=== PATIENT | male | born 1950 | race Caucasian/White ===

== ENCOUNTER 2025-02-20 14:23 | Emergency (ER) | payer BC ==
[~2025-02-20] VITALS: Ht 172.7 cm; Wt 88.0 kg
--- NOTE | 2025-02-20 14:36 | ELECTROCARDIOGRAPH REPORT ---
[facility] Test Date: 2025-02-20 Test Time: 14:32:15 Pat Name: VIKY PUGH Department: EMERGENCY ROOM Room: Gender: M [employer]: : 1950 Requested By: EVIE OCHOA Order Number: [id number] Reading MD: Measurements Intervals [place] Rate: 45 P: 52 AL: 266 QRS: 34 QRSD: 107 T: 183 QT: 525 QTc: 455 Interpretive Statements Sinus bradycardia Prolonged AL interval Borderline repolarization abnormality Please click the below link to view image of tracing.
--- NOTE | 2025-02-20 14:59 | RADIOLOGY REPORT ---
DI CHEST,SINGLE VIEW, HISTORY: CP COMPARISON: None None TECHNICAL DATA: 1 view of the chest was obtained. FINDINGS: Lines and tubes: None Cardiomediastinal silhouette: Enlarged Pulmonary vasculature: normal Lung expansion: normal Lung airspace: normal Lung interstitium: normal Pleura: normal Pneumothorax: no Bones: Unremarkable Other: no IMPRESSION: No acute intrathoracic abnormality. Cardiomegaly
[2025-02-20 15:01] LABS: BASOPHILS % (AUTO) 0.4 % (0-1); EOSINOPHILS # (AUTO) 0.1 X10'3 (0-0.9); EOSINOPHILS % (AUTO) 0.7 % (0-6); HEMOGLOBIN 15.4 g/dl (14.0-17.9); LYMPHOCYTES # (AUTO) 1.3 X10'3 (1.1-4.8); LYMPHOCYTES % (AUTO) 16.9 % (21-51); MEAN CORPUSCULAR HEMOGLOBIN 29.7 PG (27.0-31.0); MEAN CORPUSCULAR HGB CONC 34.2 g/dL (33.0-36.5); MEAN CORPUSCULAR VOLUME 86.8 FL (78-98); MEAN PLATELET VOLUME 7.4 FL (7.4-10.4); MONOCYTES # (AUTO) 0.6 X10'3 (0-0.9); MONOCYTES % (AUTO) 7.4 % (2-12); NEUTROPHILS # (AUTO) 5.7 X10'3 (1.8-7.7); NEUTROPHILS % (AUTO) 74.6 % (42-75); PLATELET COUNT 163 X10'3 (140-440); RED BLOOD COUNT 5.18 X10'6 (4.70-6.10); RED CELL DISTRIBUTION WIDTH 13.5 % (11.5-14.5); WHITE BLOOD COUNT 7.6 X10'3 (4.5-11.0)
[2025-02-20 15:15] LABS: ALANINE AMINOTRANSFERASE 43 U/L (12-78); ALBUMIN 3.9 G/DL (3.4-5.0); ALBUMIN/GLOBULIN RATIO 1.1 (1.1-1.5); ALKALINE PHOSPHATASE 70 IU/L (46-116); ANION GAP 7 (8-16); ASPARTATE AMINO TRANSFERASE 24 U/L (10-37); BLOOD UREA NITROGEN 36 MG/DL (7-18); CALCIUM 8.2 MG/DL (8.5-10.1); CHLORIDE 107 MMOL/L (99-107); CREATININE 1.16 MG/DL (0.60-1.10); GLUCOSE 199 MG/DL (70-104); POTASSIUM 4.4 MMOL/L (3.5-5.1); SODIUM 141 MMOL/L (135-145); TOTAL CARBON DIOXIDE 26.6 MMOL/L (24-32); TOTAL PROTEIN 7.3 G/DL (6.4-8.2); eCRCL 55 ML/MIN; eGFR 62 ML/MIN
[2025-02-20 15:22] LABS: PRO BRAIN NATRIURETIC PEPTIDE 545 PG/ML (0-125)
[2025-02-20 15:56] VITALS: TEMP 98.4
[2025-02-20 16:53] LABS: BILIRUBIN,URINE NEGATIVE (Neg); CLARITY,URINE CLEAR (Clear); COLOR,URINE YELLOW (Yellow); GLUCOSE, URINE >=1000 mg/dl (Neg); KETONES,URINE NEGATIVE (Neg); LEUKOCYTE ESTERASE ,URINE NEGATIVE (Neg); NITRITES, URINE NEGATIVE (Neg); OCCULT BLOOD,URINE TRACE-INTACT (Neg); PROTEIN,URINE 30 mg/dl (Neg); UROBILINOGEN,URINE 0.2 E.U/dL (0.2-1.0)
[2025-02-20 16:56] LABS: UA COLLECTION TYPE CLN CATCH MIDSTREAM
[2025-02-20 17:06] VITALS: BP 144/84; PULSE 47; RESP 18; O2SAT 99
[2025-02-20 17:11] LABS: BACTERIA,URINE NONE SEEN /HPF (Neg); HYALINE CASTS 0-3 /LPF (NEGATIVE); MUCUS STRANDS FEW /LPF (Neg); RBC,URINE 0-2 /HPF (0-2); SQUAMOUS EPITHELIAL CELL,UR NONE SEEN /LPF (FEW); WBC,URINE 0-4 /HPF (0-4)
--- NOTE | 2025-02-24 17:06 | Physician Documentation ---
History of Present Illness ~ Chief Complaint: Syncope Stated Complaint: NEAR SYNCOPE Time Seen by MD: 14:46 Mode of Arrival: EMS HPI BIB EMS from home for near syncopal episode with bradycardia in 30's-40's noted en route. Pt given 8mg zofran and fluids as was actively vomiting. Patient reports he was sitting in his car and eating when he became acutely dizzy. He sat there for about an hour and his boss found him and called 911. 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 Denies fever, headache, diarrhea, SOB, chest pain, urinary symptoms. Medication Reconciliation Allergies: Coded Allergies: No Known Allergies (Unverified , 02/20/25) Past Medical History Smoking Status: Never smoker Review of Systems All Other Systems at this time: Reviewed and Negative Physical Exam Vital Signs: RN Vital Signs have been reviewed: Yes, Temperature: 98.4, Source: Temporal, Heart Rate: 47, Respiratory Rate: 18, BP: 144/84, Pulse Oximetry: 99, Weight: 88.000 Oxygen Flow Rate: 0 Physical Exam Gen: no distress HEENT: PERRL, EOMI Pulm: no distress, CTAB Cardiac: RRR, no murmurs Abdomen: s/nt/nd Skin: w/d/i Neuro: nonfocal, alert Psych: appropriate Progress Results/Orders Results/Orders Orders - EVIE OCHOA MD Chest,Single View (02/20/25 14:35) Monitor (02/20/25 14:25) Saline Lock (02/20/25 14:25) Oxygen (02/20/25 14:25) Hs Troponin I W Calculations (02/20/25 17:25) Completed Orders - EVIE OCHOA MD Chest,Single View (02/20/25 14:35) Cbc/Diff (02/20/25 14:25) PBNP (02/20/25 14:25) Electrocardiogram (02/20/25 14:25) CMP (02/20/25 14:25) Hs Troponin I W Calculations (02/20/25 14:25) Hs Troponin I W Calculations (02/20/25 16:25) Ua W/Microscopic, Cult If Ind (02/20/25 16:39) Vital Signs 02/20/25 02/20/25 02/20/25 02/20/25 14:27 15:45 15:56 15:59 Temp 98.4 98.4 Pulse 47 44 Resp 16 13 22 14 B/P (MAP) 186/138 153/70 (97) Pulse Ox 97 98 O2 Flow Rate 0 0 02/20/25 17:06 Pulse 47 Resp 18 B/P (MAP) 144/84 (104) Pulse Ox 99 O2 Flow Rate 0 Laboratory Tests Test 02/20/25 14:37 02/20/25 16:39 02/20/25 16:47 White Blood Count 7.6 Red Blood Count 5.18 Hemoglobin 15.4 Hematocrit 45.0 Mean Corpuscular Volume 86.8 Mean Corpuscular Hemoglobin 29.7 Mean Corpuscular Hemoglobin Concent 34.2 Red Cell Distribution Width 13.5 Platelet Count 163 Mean Platelet Volume 7.4 Neutrophils (%) (Auto) 74.6 Lymphocytes (%) (Auto) 16.9 L Monocytes (%) (Auto) 7.4 Eosinophils (%) (Auto) 0.7 Basophils (%) (Auto) 0.4 Neutrophils # (Auto) 5.7 Lymphocytes # (Auto) 1.3 Monocytes # (Auto) 0.6 Eosinophils # (Auto) 0.1 Basophils # (Auto) 0.0 CBC Comment Sodium Level 141 Potassium Level 4.4 Chloride Level 107 Carbon Dioxide Level 26.6 Anion Gap 7 L Blood Urea Nitrogen 36 H Creatinine 1.16 H Estimated GFR/1.73 m2 62 BUN/Creatinine Ratio 31.0 H Glucose Level 199 H Calcium Level 8.2 L Total Bilirubin 1.0 Aspartate Amino Transf (AST/SGOT) 24 Alanine Aminotransferase (ALT/SGPT) 43 Alkaline Phosphatase 70 Troponin I High Sensitivity 12 14 Pro-B-Type Natriuretic Peptide 545 H Total Protein 7.3 Albumin 3.9 Globulin 3.4 Albumin/Globulin Ratio 1.1 Chemistry Comments Urine Specimen Description Cln catch midstream Urine Color Yellow Urine Clarity Clear Urine pH 6.0 Urine Specific [place] 1.020 Urine Protein 30 H Urine Glucose (UA) >=1000 H Urine Ketones Negative Urine Occult Blood Trace-intact Urine Nitrite Negative Urine Bilirubin Negative Urine Urobilinogen 0.2 Urine Leukocyte Esterase Negative Urine RBC 0-2 Urine WBC 0-4 Urine Squamous Epithelial Cells None seen Urine Bacteria None seen Urine Hyaline Casts 0-3 Urine Mucus Few Urine Culture Indicated Not ind Volume Urine Centrifuged 10 ml Urine Comment Troponin I High Sens Percent Delta 16 Troponin I Hi Sens Absolute Change 2 EKG/XRAY/CT/US/VASC/MRI EKG : Indication: dizzy EKG: NSR, no ST T wave changes EKG Blocks: none Chest X-Ray : Interpreted By: self Views: 1 VIEW Indication: dizzy Lungs: normal Mediastinum: normal Ribs/Bones: normal Abdomen: normal Impression: no acute disease Medical Decision Making Findings 74 year old male with acute vomiting and some diarrhea. Stable and benign exam. Extensive workup did not demonstrate any acute etiologies for his symptoms and after fluids and medications he was improved. We road tested him successfully. He refused admission to the hospital for further workup. Discharged with return precautions in care of family. Differential Dx:Considerations: Include: anemia, CVA, dysrhythmia, electrolyte disorder, encephalopathy, hypoglycemia, labyrinthitis, myocardial infarction, pulmonary embolus, TIA, vasovagal, vertigo central, vertigo peripheral Departure Disposition: 01 HOME / SELF CARE / HOMELESS Impression: Primary Impression: Vomiting and diarrhea Additional Impression: Hyperglycemia Condition: Stable Discharge Instructions: Dehydration, Adult Education Educated: Patient, Family Educated regarding: diagnosis, treatment, prognosis, need for follow up Signature Scribe Signature: . Attestation: . EVIE OCHOA MD February 24, 2025 17:06
== END 2025-02-20 17:07 | disposition home or self-care (01) ==
LOC: ER 14:24
DX: R19.7 Diarrhea, unspecified (principal); R11.10 Vomiting, unspecified; R73.9 Hyperglycemia, unspecified
CPT/HCPCS: 36415; 71045; 80053; 81001; 83880; 84484; 85025; 93005; 99285